=== PATIENT | female | born 1975 | race Caucasian/White ===

== ENCOUNTER → 2020-11-22 | Outpatient (CLI) | payer BC, OTHER ==
[2020-11-24 12:13] LABS: RHEUMATOID ARTHRITIS FACTOR 11.1 IU/mL (0.0-13.9)
== END ==
LOC: LAB 13:30
PROVIDERS: Internal Medicine
DX: M25.50 Pain in unspecified joint (principal); K76.0 Fatty (change of) liver, not elsewhere classified; R53.82 Chronic fatigue, unspecified
CPT/HCPCS: 36415; 82728; 83540; 83550; 86038; 86431

== ENCOUNTER → 2021-01-03 | Outpatient (CLI) | payer BC, OTHER ==
[2021-01-04 09:15] LABS: VITAMIN D, 25-HYDROXY 65.6 ng/mL (30.0-100.0)
[2021-01-04 12:15] LABS: RHEUMATOID ARTHRITIS FACTOR <10.0 IU/mL (0.0-13.9)
[2021-01-05 00:11] LABS: CCP ANTIBODIES IGG/IGA 4 units (0-19)
== END ==
LOC: LAB 12:16
PROVIDERS: Nurse Practitioner Family
DX: R76.8 Other specified abnormal immunological findings in serum (principal); D89.9 Disorder involving the immune mechanism, unspecified; M25.50 Pain in unspecified joint; M79.10 Myalgia, unspecified site
CPT/HCPCS: 36415; 81001; 82550; 82570; 83520; 84156; 85652; 86140; 86200; 86431

== ENCOUNTER → 2021-05-17 | Outpatient (CLI) | payer BC ==
[2021-05-17 17:26] LABS: HEMOGLOBIN 12.8 gm/dl (12.3-15.3); RED BLOOD COUNT 4.1 M/UL (4.00-5.10); WHITE BLOOD COUNT 10.7 K/UL (4.5-11.0)
[2021-05-17 17:44] LABS: BUN/CREATININE RATIO 12 (0-10)
[2021-05-19 09:14] LABS: HBSAG SCREEN Negative (Negative); HEP B CORE AB, TOT Negative (Negative)
[2021-05-19 10:14] LABS: HCV AB <0.1 (0.0-0.9)
== END ==
LOC: LAB 14:27
PROVIDERS: Internal Medicine
DX: R79.82 Elevated C-reactive protein (CRP) (principal); Z51.81 Encounter for therapeutic drug level monitoring; Z79.899 Other long term (current) drug therapy
CPT/HCPCS: 80053; 85025; 85652; 86140; 86704; 86803; 87340